=== PATIENT | male | born 1965 | race Caucasian/White ===

== ENCOUNTER 2016-08-11 18:04 | Emergency (ER) | payer OTHER ==
[2016-08-11] MEDS ORDERED: ACETAMINOPHEN 325 MG TABLET PO ONE (19:08)
--- NOTE | 2016-08-11 19:08 | ER Document Report ---
ED Medical Screen (RME) - General Stated Complaint: FALL HEAD INJURY Mode of Arrival: Ambulatory Information source: Patient Notes: Patient states that he was walking, slipped on ice and fell 08/03/16. Patient states that he is not certain whether or not he may have had a loss of consciousness but suspects he might have. he did see a medical professional the following day, but did not have any imaging studies performed. Patient does report having an episode in which he had forgot where he parked, how to unlock his car and how to drive his car. Patient did see his doctor at the [place] [facility] who advised him to come here for further evaluation. Patient states headache pain worsens with increased concentration hx: Borderline diabetic I have greeted and performed a rapid initial assessment of this patient. A comprehensive ED assessment and evaluation of the patient, analysis of test results and completion of the medical decision making process will be conducted by additional ED providers. TRAVEL OUTSIDE OF THE [place] IN LAST 30 DAYS: No - Related Data Allergies/Adverse Reactions: codeine [Codeine] Allergy (Severe, Verified 08/11/16 19:03) Shortness of Breath hydrocodone [Hydrocodone] Allergy (Severe, Verified 08/11/16 19:03) Shortness of Breath oxycodone [Oxycodone] Allergy (Severe, Verified 08/11/16 19:03) Shortness of Breath Sulfa (Sulfonamide Antibiotics) Allergy (Severe, Verified 08/11/16 19:03) rash morphine [Morphine] Adverse Reaction (Severe, Verified 08/11/16 19:03) "does not work" Past Medical History - Past Medical History Cardiac Medical History: Denies: Hx Coronary Artery Disease, Hx Heart Attack, Hx Hypertension Pulmonary Medical History: Denies: Hx Asthma, Hx Bronchitis, Hx COPD, Hx Pneumonia Neurological Medical History: Denies: Hx Cerebrovascular Accident, Hx Seizures Musculoskeltal Medical History: Reports Hx Arthritis - all over,gout - Immunizations Hx Diphtheria, Pertussis, Tetanus Vaccination: Yes Physical Exam - Vital signs Vitals: Temp Pulse Resp BP Pulse Ox 98.8 F 79 16 125/69 96 08/11/16 18:08 08/11/16 18:08 08/11/16 18:08 08/11/16 18:08 08/11/16 18:08 - Neurological Orientation: AAOx4 [place] Coma Scale Eye Opening: Spontaneous [place] Coma Scale Verbal: Oriented [place] Coma Scale Motor: Obeys Commands [place] Coma Scale Total: 15 Speech: Normal Course - Vital Signs Vital signs: Temp Pulse Resp BP Pulse Ox 98.8 F 79 16 125/69 96 08/11/16 18:08 08/11/16 18:08 08/11/16 18:08 08/11/16 18:08 08/11/16 18:08
--- NOTE | 2016-08-11 21:23 | ER Document Report ---
ED General - General Chief Complaint: Head Injury Stated Complaint: FALL HEAD INJURY Time seen by provider: 21:10 Mode of Arrival: Ambulatory Notes: Patient is a 51-year-old male that comes emergency department for chief complaint of head injury, initial head injury occurred on 08/03/16, he states he was carrying something and he slipped on ice and fell back and hit the back of his head, knocking himself out. He was evaluated by his primary care shortly after, he states that he has been having episodes of lightheadedness, forgetfulness, frequent headaches, difficulty concentrating, he states he was evaluated by urgent care and sent over here. Patient denies any focal numbness or weakness, visual changes, denies any current headache. He also states that he has a very tender left neck and shoulder areas with difficulty turning his head. Patient is not on a blood thinner. TRAVEL OUTSIDE OF THE [place] IN LAST 30 DAYS: No - Related Data Allergies/Adverse Reactions: codeine [Codeine] Allergy (Severe, Verified 08/11/16 19:03) Shortness of Breath hydrocodone [Hydrocodone] Allergy (Severe, Verified 08/11/16 19:03) Shortness of Breath oxycodone [Oxycodone] Allergy (Severe, Verified 08/11/16 19:03) Shortness of Breath Sulfa (Sulfonamide Antibiotics) Allergy (Severe, Verified 08/11/16 19:03) rash morphine [Morphine] Adverse Reaction (Severe, Verified 08/11/16 19:03) "does not work" Past Medical History - General Information source: Patient - Social History Smoking Status: Never Smoker Chew tobacco use (# tins/day): No Frequency of alcohol use: None Drug Abuse: None Lives with: Family Family History: Reviewed & Not Pertinent Patient has suicidal ideation: No Patient has homicidal ideation: No - Past Medical History Cardiac Medical History: Denies: Hx Coronary Artery Disease, Hx Heart Attack, Hx Hypertension Pulmonary Medical History: Denies: Hx Asthma, Hx Bronchitis, Hx COPD, Hx Pneumonia Neurological Medical History: Denies: Hx Cerebrovascular Accident, Hx Seizures Renal/ Medical History: Denies: Hx Peritoneal Dialysis Musculoskeltal Medical History: Reports Hx Arthritis - all over,gout Surgical Hx: Negative - Immunizations Hx Diphtheria, Pertussis, Tetanus Vaccination: Yes Review of Systems - Review of Systems Constitutional: No symptoms reported EENT: No symptoms reported Cardiovascular: No symptoms reported Respiratory: No symptoms reported Gastrointestinal: No symptoms reported Genitourinary: No symptoms reported Male Genitourinary: No symptoms reported Musculoskeletal: See HPI Skin: No symptoms reported Hematologic/Lymphatic: No symptoms reported Neurological/Psychological: See HPI Physical Exam - Vital signs Vitals: Temp Pulse Resp BP Pulse Ox 98.8 F 79 16 125/69 96 08/11/16 18:08 08/11/16 18:08 08/11/16 18:08 08/11/16 18:08 08/11/16 18:08 Interpretation: Normal - General General appearance: Appears well, Alert In distress: None - HEENT Head: Normocephalic, Atraumatic Eyes: Normal Conjunctiva: Normal Extraocular movements intact: Yes Eyelashes: Normal Pupils: PERRL Ears: Normal External canal: Normal Tympanic membrane: Normal Sinus: Normal Nasal: Normal Mouth/Lips: Normal Pharynx: Normal Neck: Normal. No: Meningismus - Respiratory Respiratory status: No respiratory distress Chest status: Nontender Breath sounds: Normal Chest palpation: Normal - Cardiovascular Rhythm: Regular. No: Tachycardia Heart sounds: Normal auscultation, S1 appreciated, S2 appreciated Murmur: No - Abdominal Inspection: Normal Distension: No distension Bowel sounds: Normal Tenderness: Nontender Organomegaly: No organomegaly - Back Back: Other - Patient does not have midline cervical tenderness, he has left paracervical tenderness and tenderness over the left trapezius with difficulty with lateral rotation of the neck, no nuchal rigidity, normal thoracic, lumbar exam, normal upper extremity and lower extremity strength, distal neurovascular exam. No saddle anesthesia. - Extremities General upper extremity: Normal inspection, Nontender, Normal color, Normal ROM , Normal temperature General lower extremity: Normal inspection, Nontender, Normal color, Normal ROM , Normal temperature, Normal weight bearing. No: Philip's sign - Neurological Neuro grossly intact: Yes Cognition: Normal Orientation: AAOx4 [place] Coma Scale Eye Opening: Spontaneous [place] Coma Scale Verbal: Oriented [place] Coma Scale Motor: Obeys Commands [place] Coma Scale Total: 15 Speech: Normal Motor strength normal: LUE, RUE, LLE, RLE Sensory: Normal - Psychological Associated symptoms: Normal affect, Normal mood - Skin Skin Temperature: Warm Skin Moisture: Dry Skin Color: Normal Course - Re-evaluation Re-evalutation: CT of the head and neck reviewed, no acute abnormalities, patient with muscle spasm of the left trapezius and tenderness of the paracervical muscles. Patient with no neurological deficits, alert, conversational, otherwise well- appearing. Patient was discussed in detail about postconcussive syndrome, treatment of his muscle tenderness, discussed follow-up with primary care, referred to neurologist in case this continues to be a problem, discussed return precautions. Patient states understanding and agreement. - Vital Signs Vital signs: Temp Pulse Resp BP Pulse Ox 97.7 F 68 18 113/67 95 08/11/16 22:25 08/11/16 22:25 08/11/16 22:25 08/11/16 22:25 08/11/16 22:25 Discharge - Discharge Clinical Impression: Neck pain Head injury Qualifiers: Encounter type: initial encounter Qualified Code(s): S09.90XA - Unspecified injury of head, initial encounter Condition: Stable Disposition: HOME, SELF-CARE Additional Instructions: CT of the head and neck did not show any acute injuries. Symptoms are consistent with postconcussive syndrome, see additional instructions below, symptoms continue please follow-up with neurology referral. The more you and rest and sleep when you have headaches the faster you should recover. You also appear to have a muscle spasm. Take the Skelaxin muscle relaxer, apply heat to the shoulder/neck. Follow-up with your provider. Return the emergency department for any concerning symptoms. Dizziness, mild nausea, mild headache, trouble concentrating, and a general sense of "not being right" may persist for a week or two. This is a frequent complication of concussion. However, if the symptoms worsen, or new symptoms develop, you should be re-examined by the physician. There is no specific cure for post-concussion syndrome. You can take mild pain medication such as ibuprofen or acetaminophen. While you should not drive if you are dizzy, you can get back to your regular activities as quickly as the symptoms will allow. And while vigorous exercise may worsen the headache, mild physical activity often is helpful. Sitting and thinking about your symptoms will worsen them. If difficulties continue, you may need referral for special therapy to help you regain full mental function. Call the physician if you are worsening, or if symptoms are still present in one week. Report any new symptoms immediately. Prescriptions: Metaxalone [Skelaxin] 800 mg PO ASDIR PRN #30 tablet PRN Reason: Referrals: AGGIE LENZ MD [ACTIVE STAFF] - Follow up in 1 week
[2016-08-12 05:46] VITALS: BP 113/67
== END 2016-08-11 22:25 | disposition home or self-care (01) ==
LOC: ER 18:04
DX: S06.9X9A Unspecified intracranial injury with loss of consciousness of unspecified duration, initial encounter (principal); W00.0XXA Fall on same level due to ice and snow, initial encounter; M54.2 Cervicalgia; R42 Dizziness and giddiness; R41.3 Other amnesia; R51 Headache; R29.818 Other symptoms and signs involving the nervous system; M62.830 Muscle spasm of back; Z88.5 Allergy status to narcotic agent; Z88.2 Allergy status to sulfonamides
CPT/HCPCS: 70450; 72125; 99284

== ENCOUNTER 2017-06-19 20:36 | Emergency (ER) | payer OTHER ==
[2017-06-19] MEDS ORDERED: TRAMADOL HCL 50 MG TABLET PO ONE (20:57)
[2017-06-19] MEDS ORDERED: ONDANSETRON 4 MG TAB.RAPDIS PO ONE (20:57)
--- NOTE | 2017-06-19 20:59 | ER Document Report ---
ED General - General Chief Complaint: Testicular Swelling Stated Complaint: LEFT TESTICULAR INJURY Time Seen by Provider: 06/19/17 20:57 Mode of Arrival: Ambulatory Information source: Patient Notes: 52-year-old male presents with complaints of left testicular pain that is worsened over the past 2-3 days. Patient notes it is swollen and tender. He denies any urinary complaints except for urinary frequency. Patient notes symptoms occurred after heavy lifting and injury to the groin region TRAVEL OUTSIDE OF THE [place] IN LAST 30 DAYS: No - HPI Onset: Other - 3 day duration Onset/Duration: Persistent Quality of pain: Achy Severity: Mild Pain Level: 1 Associated symptoms: Other Exacerbated by: Movement Relieved by: Denies Similar symptoms previously: No Recently seen / treated by doctor: No - Related Data Allergies/Adverse Reactions: codeine [Codeine] Allergy (Severe, Verified 08/11/16 19:03) Shortness of Breath hydrocodone [Hydrocodone] Allergy (Severe, Verified 08/11/16 19:03) Shortness of Breath oxycodone [Oxycodone] Allergy (Severe, Verified 08/11/16 19:03) Shortness of Breath Sulfa (Sulfonamide Antibiotics) Allergy (Severe, Verified 08/11/16 19:03) rash morphine [Morphine] Adverse Reaction (Severe, Verified 08/11/16 19:03) "does not work" Past Medical History - Social History Smoking Status: Never Smoker Cigarette use (# per day): No Chew tobacco use (# tins/day): No Smoking Education Provided: No Frequency of alcohol use: None Drug Abuse: None Family History: Reviewed & Not Pertinent Patient has suicidal ideation: No Patient has homicidal ideation: No - Past Medical History Cardiac Medical History: Denies: Hx Coronary Artery Disease, Hx Heart Attack, Hx Hypertension Pulmonary Medical History: Denies: Hx Asthma, Hx Bronchitis, Hx COPD, Hx Pneumonia Neurological Medical History: Denies: Hx Cerebrovascular Accident, Hx Seizures Renal/ Medical History: Denies: Hx Peritoneal Dialysis Musculoskeltal Medical History: Reports Hx Arthritis - all over,gout - Immunizations Hx Diphtheria, Pertussis, Tetanus Vaccination: Yes Review of Systems - Review of Systems Notes: REVIEW OF SYSTEMS: CONSTITUTIONAL : Denies fever, chills, or sweats. Denies recent illness. EENT: Denies eye, ear, throat, or mouth pain or symptoms. Denies nasal or sinus congestion or discharge. Denies throat, tongue, or mouth swelling or difficulty swallowing. CARDIOVASCULAR: Denies chest pain. Denies palpitations or racing or irregular heart beat. Denies ankle edema. RESPIRATORY: Denies cough, cold, or chest congestion. Denies shortness of breath, difficulty breathing, or wheezing. GASTROINTESTINAL: Denies abdominal pain or distention. Denies nausea, vomiting , or diarrhea. Denies blood in vomitus, stools, or per rectum. Denies black, tarry stools. Denies constipation. GENITOURINARY: Admits to urinary frequency right testicular pain. MUSCULOSKELETAL: Denies back or neck pain or stiffness. Denies joint pain or swelling. SKIN: Denies rash, lesions or sores. HEMATOLOGIC : Denies easy bruising or bleeding. LYMPHATIC: Denies swollen, enlarged glands. NEUROLOGICAL: Denies confusion or altered mental status. Denies passing out or loss of consciousness. Denies dizziness or lightheadedness. Denies headache. Denies weakness or paralysis or loss of use of either side. Denies problems with gait or speech. Denies sensory loss, numbness, or tingling. Denies seizures. PSYCHIATRIC: Denies anxiety or stress. Denies depression, suicidal ideation, or homicidal ideation. ALL OTHER SYSTEMS REVIEWED AND NEGATIVE. Dictation was performed using [employer] voice recognition software PHYSICAL EXAMINATION: GENERAL: Well-appearing, well-nourished and in no acute distress. HEAD: Atraumatic, normocephalic. EYES: Pupils equal round and reactive to light, extraocular movements intact, sclera anicteric, conjunctiva are normal. ENT: Nares patent, oropharynx clear without exudates. Moist mucous membranes. NECK: Normal range of motion, supple without lymphadenopathy LUNGS: Breath sounds clear to auscultation bilaterally and equal. No wheezes rales or rhonchi. HEART: Regular rate and rhythm without murmurs ABDOMEN: Soft, nontender, nondistended abdomen. No guarding, no rebound. No masses appreciated. Scrotum is normal in appearance left scrotum is edematous and erythematous and tender Musculoskeletal: Normal range of motion, no pitting or edema. No cyanosis. NEUROLOGICAL: Cranial nerves grossly intact. Normal speech, normal gait. Normal sensory, motor exams PSYCH: Normal mood, normal affect. SKIN: Warm, Dry, normal turgor, no rashes or lesions noted. Physical Exam - Vital signs Vitals: Temp Pulse Resp BP Pulse Ox 98.5 F 101 H 18 132/71 H 99 06/19/17 20:52 06/19/17 20:52 06/19/17 20:52 06/19/17 20:52 06/19/17 20:52 Course - Re-evaluation Re-evalutation: 06/19/17 20:59 Doppler ordered immediately to rule out torsion versus hydrocele versus varicocele versus epididymitis 06/19/17 23:08 Urinalysis noted no sign of infection, patient's presentation is consistent with a hydrocele which should be explained by his heavy lifting and injury a day prior to this starting. Patient will be given urology follow-up pain control and is otherwise well-appearing no distress After performing a Medical Screening Examination, I estimate there is LOW risk for ACUTE APPENDICITIS, BOWEL OBSTRUCTION, ACUTE CHOLECYSTITIS, PERFORATED DIVERTICULITIS, INCARCERATED HERNIA, PANCREATITIS, TESTICULAR TORSION or PERFORATED ULCER, thus I consider the discharge disposition reasonable. Also, there is no evidence or peritonitis, sepsis, or toxicity. I have reevaluated this patient multiple times and no significant life threatening changes are noted. The patient and I have discussed the diagnosis and risks, and we agree with discharging home with close follow-up with the understanding that symptoms and presentations can change. We also discussed returning to the Emergency Department immediately if new or worsening symptoms occur. We have discussed the symptoms which are most concerning (e.g., bloody stool, fever, changing or worsening pain, intractable vomiting - standard verbal up date) that necessitate immediate return. - Vital Signs Vital signs: Temp Pulse Resp BP Pulse Ox 98.5 F 101 H 18 132/71 H 99 06/19/17 20:52 06/19/17 20:52 06/19/17 20:52 06/19/17 20:52 06/19/17 20:52 - Laboratory Laboratory results interpreted by me: 06/19/17 21:13 Urine Ketones 20 H Urine Urobilinogen 4.0 H - Diagnostic Test Radiology reviewed: Image reviewed, Reports reviewed Discharge - Discharge Clinical Impression: Hydrocele in adult, Testicular pain, left Condition: Stable Disposition: HOME, SELF-CARE Instructions: Hydrocele ([facility]) Prescriptions: Tramadol HCl 50 mg PO Q6 #20 tablet Referrals: MAGDI ZENDEJAS MD [Primary Care Provider] - Follow up as needed MAGGY MARQUEZ MD [ACTIVE STAFF] - Follow up tomorrow
[2017-06-19 21:28] LABS: APPEARANCE,URINE CLEAR; BILIRUBIN,URINE NEGATIVE (NEGATIVE); COLOR,URINE YELLOW; GLUCOSE, URINE NEGATIVE (NEGATIVE); KETONES,URINE 20 mg/dL (NEGATIVE); LEUKOCYTE ESTERASE,URINE NEGATIVE (NEGATIVE); NITRITE,URINE NEGATIVE (NEGATIVE); PROTEIN,URINE NEGATIVE (NEGATIVE); URINE SPECIFIC GRAVITY 1.025
[2017-06-19 22:59] LABS: CHLAM PCR NOT DETECTED (NOT DETECT); GON PCR NOT DETECTED (NOT DETECT)
--- NOTE | 2017-06-19 23:05 | RADIOLOGY REPORT (SQ) ---
EXAM DESCRIPTION: U/S SCROTUM W/DOPPLER COMPLETED DATE/TIME: 06/19/2017 9:58 pm REASON FOR STUDY: left testicular pain swelling COMPARISON: None. TECHNIQUE: Static and realtime castro scale imaging of the scrotum and testes. Selected color Doppler and spectral images recorded to document blood flow. LIMITATIONS: None. FINDINGS: RIGHT: TESTICLE: Normal size, 4.4 x 3.7 x 2 cm in size. Normal echotexture. Normal blood flow. No mass. EPIDIDYMIS: Normal. HYDROCELE OR VARICOCELE: Yes, moderate size right varicocele HERNIA OR EXTRA-TESTICULAR MASS: No. OTHER: No other significant finding. LEFT: TESTICLE: Normal size, 4.5 x 3.2 x 2.8 cm in size. Normal echotexture. Normal blood flow. No mass. EPIDIDYMIS: Normal. HYDROCELE OR VARICOCELE: Moderate left hydrocele HERNIA OR EXTRA-TESTICULAR MASS: No. OTHER: No other significant finding. IMPRESSION: No ultrasound evidence of testicular torsion Right-sided varicocele Left-sided hydrocele TECHNICAL DOCUMENTATION: JOB ID: [id number]- All Rights Reserved
[2017-06-19 23:25] VITALS: BP 128/75
== END 2017-06-19 23:24 | disposition home or self-care (01) ==
LOC: ER 20:36
DX: N43.3 Hydrocele, unspecified (principal); N50.812 Left testicular pain; N50.89 Other specified disorders of the male genital organs; X50.0XXA Overexertion from strenuous movement or load, initial encounter
CPT/HCPCS: 99284; 81001; 87491; 87591; 76870; 93976; S0119

== ENCOUNTER → 2017-12-15 | Outpatient (CLI) | payer OTHER ==
--- NOTE | 2017-12-15 08:35 | RADIOLOGY REPORT (SQ) ---
EXAM DESCRIPTION: U/S SCROTUM W/O DOPPLER COMPLETED DATE/TIME: 12/15/2017 8:03 am REASON FOR STUDY: SCROTAL PAIN (N50.82) N50.82 SCROTAL PAIN COMPARISON: 06/19/2017 TECHNIQUE: Static and realtime castro scale imaging of the scrotum and testes. Selected color Doppler and spectral images recorded to document blood flow. LIMITATIONS: None. FINDINGS: RIGHT: TESTICLE: Normal size. Scattered calcifications. Normal vascular flow. EPIDIDYMIS: Normal. HYDROCELE OR VARICOCELE: Small varicocele. HERNIA OR EXTRA-TESTICULAR MASS: No. OTHER: No other significant finding. LEFT: TESTICLE: Normal size. Scattered calcifications. Normal vascular flow. EPIDIDYMIS: Normal. HYDROCELE OR VARICOCELE: Varicocele. HERNIA OR EXTRA-TESTICULAR MASS: No. OTHER: No other significant finding. IMPRESSION: Bilateral varicoceles. No testicular masses or evidence for torsion. TECHNICAL DOCUMENTATION: JOB ID: [id number] [employer]- All Rights Reserved Reading location - IP/workstation name: [facility]
[2017-12-17 06:07] LABS: PROSTATE SPECIFIC ANTIGEN 1.4 ng/mL (0.0-4.0); PSA % FREE 15.7 % (.); PSA FREE 0.22 ng/mL
== END ==
LOC: RAD 07:06
PROVIDERS: ATTEND Urology
DX: N50.82 Scrotal pain (principal)
CPT/HCPCS: 36415; 76870; 84154

== ENCOUNTER → 2019-03-11 | Outpatient (CLI) | payer OTHER ==
--- NOTE | 2019-03-11 11:40 | XCELERA REPORT ---
[address] [address] Lower Extremity Arterial Evaluation Name: SOL MAHAN Age: 53 yrs Gender: Male : 1965 Patient Status: Outpatient Patient Location: Study Date: 03/11/2019 09:11 AM Procedure: A color flow and duplex scan of the lower extremity arteries was performed bilaterally with velocity and waveform anaylsis. Reason For Study: PAD Ordering Physician: MADAI DONOVAN Performed By: Jus Hunt Measurements and Calculations Right Left MANAGER INSTALLATION PSV 136.7 134.5 cm/sec Prox PFA PSV -91.0 -105.9cm/sec Prox SFA PSV 121.8 128.9 cm/sec Mid SFA PSV -116.3 -110.0cm/sec Dist SFA PSV -75.5 -81.6 cm/sec Prox Pop A PSV 85.5 57.2 cm/sec Dist VALERIA PSV 88.9 95.4 cm/sec Dist HOUSEPERSON PSV 105.0 108.1 cm/sec Cornelius Pedis PSV 17.1 42.1 cm/sec Right Side Arterial Evaluation Normal velocity and triphasic waveforms noted from the Common Femoral artery to the infrageniculate vessels . Biphasic with low velocity in the Dorsalis Pedis artery. Ankle Brachial index not ordered.. Left Side Arterial Evaluation Normal velocity and triphasic waveforms noted from the Common Femoral artery to the infrageniculate vessels . Biphasic with low velocity in the Dorsalis Pedis artery. Ankle Brachial index not ordered.. Interpretation Summary Mild hemodynamically significant lesions in the bilateral lower extremities, on duplex imaging, at rest. Duplex findings almost normal, with velocity reduction in Dorsal Pedal artery only. : MADAI DONOVAN > Darrell Amaro
--- NOTE | 2019-03-11 11:42 | XCELERA REPORT ---
[address] [facility] [address] Lower Extremity Venous Evaluation Procedure: Color flow and duplex imaging bilaterally of the veins of the lower extremities as well as the Common Femoral veins. Right Sided Venous Evaluation Normal vessel filling wall to wall, compression and augmentation as well as Colour flow down to the infrageniculate veins. Left Sided Venous Evaluation Normal vessel filling wall to wall, compression and augmentation as well as Colour flow down to the infrageniculate veins. Interpretation Summary No duplex evidence of DVT or obstruction in the bilateral lower extremities. Name: SOL MAHAN Age: 53 yrs Gender: Male : 1965 Patient Status: Outpatient Patient Location: [facility] Study Date: 03/11/2019 09:34 AM Reason For Study: PAD Ordering Physician: MADAI DONOVAN Performed By: Jus Hunt : MADAI DONOVAN > Darrell Amaro
== END ==
LOC: SP 08:41
PROVIDERS: ATTEND Surgery
DX: I73.9 Peripheral vascular disease, unspecified (principal); I87.9 Disorder of vein, unspecified
CPT/HCPCS: 93925; 93970